=== PATIENT | female | born 1980 | race Caucasian/White ===

== ENCOUNTER → 2019-06-11 08:50 | Outpatient (CLI) | payer OTHER, SELFPAY ==
--- NOTE | 2019-06-11 | DI.RAD.S_ITS ---
PROCEDURE: XR PELVIS 1-2V INDICATIONS: PAIN TECHNIQUE: 1 view(s) of the pelvis acquired. COMPARISON: None. FINDINGS: Bones: No fractures or dislocations. No suspicious bony lesions. Mild joint narrowing with periarticular osteophyte formation of the hip joints bilaterally. Soft tissues: Visualized bowel gas pattern is normal. No suspicious soft tissue calcifications. IMPRESSION: Mild symmetric hip joint degeneration. Dictated by: Juan Francisco Sanchez [facility] Interpreted: Libra Delvalle MD on 06/11/2019 at 9:41 Approved by: Libra Delvalle M.D. on 06/11/2019 at 17:11
--- NOTE | 2019-06-11 | DI.RAD.S_ITS ---
PROCEDURE: XR LUMBAR SPINE 2-3V INDICATIONS: PAIN TECHNIQUE: 3 views of the lumbar spine were acquired. COMPARISON: None. FINDINGS: Bones: 5 [id number]-ped-myrmmfs vertebrae are present. Trace dextroscoliosis centered at the L1 level. No vertebral body compression fractures. No suspicious bony lesions. Mild facet joint arthropathy at L5-S1 level. Soft tissues: Overlying bowel gas pattern is normal. No suspicious soft tissue calcifications. IMPRESSION: Mild L5-S1 facet joint arthropathy. Dictated by: Juan Francisco Sanchez [facility] Interpreted: Libra Delvalle MD on 06/11/2019 at 9:40 Approved by: Libra Delvalle M.D. on 06/11/2019 at 17:11
== END ==
PROVIDERS: Referring Provider Chiropractor; Visit Provider Chiropractor
DX: M21.70 Unequal limb length (acquired), unspecified site (principal); M54.5 Low back pain
CPT/HCPCS: 72100; 72170

== ENCOUNTER → 2020-10-24 09:24 | Outpatient (CLI) | payer OTHER, SELFPAY ==
[2020-10-24 19:35] LABS: Add Manual Diff / Slide Review NO; Basophils Absolute Auto 0 /uL (0-100); Basophils Percent Auto 0.8 % (0-2); Eosinophils Absolute Auto 100 /uL (0-450); Hematocrit 42.4 % (36-46); Hemoglobin 14.1 g/dL (12.0-16.0); Lymphocytes Absolute Auto 1200 /uL (1100-4500); Lymphocytes Percent Auto 24.6 % (25-40); Mean Corpuscular HGB Conc 33.3 % (30-36); Mean Corpuscular Hemoglobin 31.2 PG (26-34); Mean Corpuscular Volume 93.8 fL (80-100); Monocytes Absolute Auto 400 /uL (0-900); Monocytes Percent Auto 8.4 % (3-14); Neutrophils Absolute Auto 3200 /uL (1500-7000); Neutrophils Percent Auto 65.2 % (50-75); Platelet Count 241 X10^3/uL (150-400); Red Blood Cell Count 4.52 X10^6/uL (4.0-5.2); Red Cell Distribution Width 12.2 % (11.6-14.8); White Blood Cell Count 4.9 X10^3/uL (4.5-11.0)
[2020-10-24 20:07] LABS: Total Iron Binding Capacity 363 ug/dL (265-497)
[2020-10-24 20:08] LABS: Vitamin D 25 Hydroxy (D3) 73.2 ng/mL (30.0-100.0)
[2020-10-24 20:19] LABS: Progesterone, Total 6.06 ng/mL
[2020-10-24 20:25] LABS: Ferritin 21 ng/mL (6-137)
[2020-10-24 21:10] LABS: Cortisol AM (Before 10AM) 8.09 ug/dL (4.46-22.7)
== END ==
DX: R94.7 Abnormal results of other endocrine function studies (principal); R89.1 Abnormal level of hormones in specimens from other organs, systems and tissues; N94.3 Premenstrual tension syndrome; D64.9 Anemia, unspecified; R53.83 Other fatigue
CPT/HCPCS: 82306; 82533; 82627; 82728; 83550; 84144; 85025

== ENCOUNTER → 2023-07-16 16:03 | Outpatient (CLI) | payer OTHER, SELFPAY ==
--- NOTE | 2023-07-16 | DI.RAD.S_ITS ---
PROCEDURE: XR CERVICAL SPINE 4V OR 5V INDICATIONS: headache and neck pain TECHNIQUE: 5 views of the cervical spine were acquired. COMPARISON: None. FINDINGS: Bones: No fractures or dislocations to the T1 level. No suspicious bony lesions. There is loss of the expected cervical lordosis. There is normal range of motion between flexion and extension. 2 mm subluxation is noted at C3-4 from flexion to extension. Soft tissues: Prevertebral soft tissues are normal in thickness. IMPRESSION: 1. Normal range of motion. Trace subluxation noted at C3-4 from flexion to extension. Dictated by: Cristy Francois M.D. on 07/17/2023 at 11:54 Approved by: Cristy Francois M.D. on 07/17/2023 at 11:55
== END ==
PROVIDERS: PCP Physician Assistant Medical
DX: G44.89 Other headache syndrome (principal); M54.2 Cervicalgia
CPT/HCPCS: 72050